=== PATIENT | female | born 1980 | race Caucasian/White ===

== ENCOUNTER 2017-01-16 17:30 | Emergency (ER) | payer MEDICARE, MEDICAID ==
[~2017-01-16] VITALS: Ht 172.7 cm; Wt 96.8 kg
[~2017-01-16 17:30] MED LIST: AMPH20TA5 PO; BUPR1FIL3 SL; BUPR1FIL5 SL; DIAZ5TAB PO; FLUO20CA25 PO
[2017-01-16 17:39] VITALS: BP 128/85; PULSE 108; RESP 14; O2SAT 91
[2017-01-16 18:12] LABS: BASOPHILS % (AUTO) 0.2 % (0-3); EOSINOPHILS % (AUTO) 1.9 % (0-5); MONOCYTES % (AUTO) 8.4 % (4-12); Mean Corpuscular Hemoglobin 27.2 pg (27.0-35.0); Mean Corpuscular Volume 81.6 fL (81-100); NEUTROPHILS % (AUTO) 70.3 % (40-74); Platelet Count 149 bil/L (150-400)
[2017-01-16 18:34] LABS: TROPONIN T < 0.010 ug/L (0.0-0.011)
--- NOTE | 2017-01-16 18:34 | DRSVH ---
PROCEDURE: X-RAY CHEST ONE VIEW, PORTABLE ([id number]) INDICATIONS: chest pain TECHNIQUE: One view of the chest was acquired. COMPARISON: None. FINDINGS: Surgical changes and devices: None. Lungs and pleura: No pleural effusions or pneumothorax. Right basilar platelike atelectasis or scarr ing. Otherwise the lungs are clear. Mediastinum: Mediastinal contours appear normal. Heart size is normal. Bones and chest wall: No suspicious bony lesions. Overlying soft tissues appear unremarkable. IMPRESSION: Right basilar platelike atelectasis or scarring. Otherwise, no radiographic evidence of c hest pathology. Dictated by: Michael Veronica M.D. on 01/16/2017 at 18:32 Approved by: Michael Veronica M.D. on 01/16/2017 at 18:33
[2017-01-16 19:40] VITALS: BP 119/54; PULSE 115; RESP 21; O2SAT 95
--- NOTE | 2017-01-16 19:40 | ED.REPORT ---
HPI-Abd Pain F Under 40 Date of Service Jan 16, 2017 ED Provider: Leroy Wallace DO Pt is a 36 year old female with a history of chronic abdominal pain who presents to the ED complaining of intermittent LLQ abdominal pain onset 4 days ago. She c/o associated SOB, urinary urgency, increased urinary frequency, nausea, restlessness, clammy skin, and tachycardia. She denies vomiting, diarrhea, dysuria, dehydration, and back pain. Pt presented to Urgent care with her symptoms and she reports that they determined that she was "clammy" and tachycardic at 125. Pt rates her pain 5/10 at its worst, and reports that she cannot feel her pain currently due to her position. Per pt, her pain is exacerbated by movement, laying on her side. Patient is somewhat of a poor historian. Pt denies a history of kidney stones, recent surgeries, current . Pt also denies missing any of her Suboxone doses. The pt was not sure when her last menstruation was, but her mom reports that is was 2 weeks ago. Per pt, she had a colonoscopy 4 years ago that was negative, with no specific evidence of diverticulosis. Nursing Notes Stated Complaint: STOMACH PAIN,LOW PULSE,TACHYCARDIA Chief Complaint: Female Abdominal Pain Nursing Notes Reviewed: Yes Allergies: Coded Allergies: No Known Allergies (Verified Allergy, Unknown, 03/30/14) Scheduled Amphet Asp/Amphet/D-Amphet (Adderall) 20 Mg Tablet 20 MG PO BID Buprenorphine HCl/Naloxone HCl (Suboxone 4 mg-1 mg Sl Film) 1 Each Film 1 EACH SL DAILY Buprenorphine HCl/Naloxone HCl (Suboxone 8 mg-2 mg Sl Film) 1 Each Film 1 EACH SL DAILY Diazepam (Valium) 5 Mg Tablet 6 MG PO TID Fluoxetine (Fluoxetine) 20 Mg Capsule 80 MG PO DAILY General Time Seen by MD: 18:17 Chief Complaint Abdominal pain Hx Obtained From: Patient Arrived By: Walk-in Sudden in Onset?: No Onset Occurred: 4 days ago Symptom Duration: Since onset Location: : LLQ Quality: Painful Radiation: : Does not radiate Severity: Current: Moderate Severity: Maximum: Moderate Recent Healthcare: Recent doctor visit Similar Sx Previous: Yes Past Medical History Past Medical History Opiate abuse ADHD Chronic migraine Chronic abdominal pain Reports: GERD Reports: Depression Past Surgical History colonoscopy EGD with biopsy and brushings Smoking History Current Some Day Smoker Social History Alcohol Use: Denies alcohol use Drug Use: Other (Prescription opiates) Other Social History: Good social support Ambulatory Status Independent Review of Systems + restlessness + clammy skin Respiratory: Reports: Shortness of breath GI: Reports: Abdominal pain, Nausea, Denies: Diarrhea, Vomiting Female: Reports: Urinary frequency, Urinary urgency, Denies: Dysuria Musculoskeletal: Denies: Back pain Complete sys rev & neg: except as marked. Physical Exam Initial Vital Signs Vital Signs (First) Date Time Temp Pulse Resp B/P Pulse Ox O2 Delivery O2 Flow Rate FiO2 01/16/17 17:39 36.8 108 14 128/85 91 Room Air Initial VS: Reviewed Head / Eyes: Atraumatic, Normocephalic Neck: Supple, Full range of motion Neurologic: Alert, Oriented, Nonfocal Psychiatric: Mood/affect normal General/Constitutional: Awake, Alert Respiratory / Chest: Atraumatic, Breath sounds NL, Breath sounds = bilat No increased work of breathing Cardiovascular: Regular rhythm, Heart sounds NL, No murmurs Heart Rate / Rhythm: Positive: Tachycardia Abdomen: Atraumatic, Soft, Non-tender Back: Atraumatic, Full range of motion, No CVA tenderness Skin: Warm Clammy Lower Extremity / Pelvis / MS: Atraumatic, Full range of motion, No swelling ( bilaterally) Interpretation & Diagnostics Lab Results Interpretation Result Diagram: 01/16/17 1800 01/16/17 1800 Test 01/16/17 17:57 01/16/17 17:58 01/16/17 18:00 01/16/17 19:41 Hold Purple Top Tube Received (Received) Hold Blue Top Tube Received (Received) Hold Red Top Tube Received (Received) Hold Milo Top Tube Received (Received) Hold Gaston Top Tube Received (Received) White Blood Count 12.3th/mm3 (3.8-10.1) Red Blood Count 4.63mil/mm3 (3.90-5.20) Hemoglobin 12.6g/dL (12.0-15.6) Hematocrit 37.8% (35.0-46.0) Mean Corpuscular Volume 81.6fL (81-100) Mean Corpuscular Hemoglobin 27.2pg (27.0-35.0) Mean Corpuscular Hemoglobin Concent 33.3% (32.0-37.0) Red Cell Distribution Width 13.0% (12.3-15.4) Platelet Count 149bil/L (150-400) Neutrophils (%) (Auto) 70.3% (40-74) Lymphocytes (%) (Auto) 19.0% (14-46) Monocytes (%) (Auto) 8.4% (4-12) Eosinophils (%) (Auto) 1.9% (0-5) Basophils (%) (Auto) 0.2% (0-3) Sodium Level 135mEq/L (134-144) Potassium Level 4.1mEq/L (3.5-5.2) Chloride Level 99mEq/L (97-108) Carbon Dioxide Level 22mmol/L (18-29) Blood Urea Nitrogen 22mg/dL (6-20) Creatinine 0.74mg/dL (0.57-1.00) Estimat Glomerular Filtration Rate 126mL/min (>59) Glucose Level 113mg/dL (60-99) Calcium Level 8.8mg/dL (8.5-10.1) Magnesium Level 2.0mg/dL (1.6-2.6) Total Bilirubin 0.2mg/dL (0.0-1.2) Aspartate Amino Transf (AST/SGOT) 17U/L (0-50) Alanine Aminotransferase (ALT/SGPT) 17U/L (0-32) Alkaline Phosphatase 58U/L (25-150) Troponin T < 0.010ug/L (0.0-0.011) Total Protein 7.2g/dL (6.4-8.4) Albumin 3.9g/dL (3.4-5.0) Lipase 17U/L (13-60) Hold Urine Received (Received) Test 01/16/17 19:51 Urine Color Dark yellow (YELLOW) Urine Appearance Clear (CLEAR,HAZY) Urine pH 5.5 (5.0-8.0) Urine Specific [place] 1.005 (1.003-1.035) Urine Protein Negativemg/dL (NEG,TRACE) Urine Glucose (UA) Negativemg/dL (NEGATIVE) Urine Ketones Negativemg/dL (NEGATIVE) Urine Occult Blood Negative (NEGATIVE) Urine Nitrite Positive (NEGATIVE) Urine Bilirubin Negative (NEGATIVE) Urine Urobilinogen Normalmg/dL (NORMAL) Urine Leukocyte Esterase Negative (NEGATIVE) Urine RBC 0-2/hpf (0-2) Urine WBC 0-5/hpf (0-5) Urine Epithelial Cells Few/hpf (NONE-MOD) Urine Crystals None seen (NONE SEEN) Urine Bacteria Few/hpf (NONE-FEW) Urine Hyaline Casts None/lpf (NONE) Urine Granular Casts None seen (NONE SEEN) Urine Waxy Casts None seen (NONE SEEN) Urine Red Blood Cell Casts None seen (NONE SEEN) Urine White Blood Cell Casts None seen (NONE SEEN) Urine Mucus None seen (None Seen) Urine Trichomonas None seen (NONE SEEN) Urine Yeast None (NONE SEEN) Urinalysis Comment None Urine Culture Reflexed Indicated ECG Interpretation ECG Interpretation: Sinus tachycardia with a rate of 110 Time: 18:06 Interpreted by: ED physician X-Ray Chest Interpretation Chest Xray Interpretation: IMPRESSION: Right basilar platelike atelectasis or scarring. Otherwise, no radiographic evidence of chest pathology. Dictated by: Michael Veronica M.D. on 01/16/2017 at 18:32 View: Portable, 1 view Interpretation / Wet Read by: Interpret - Radiologist CT Chest Interpretation IMPRESSION: 1. No acute pulmonary emboli. 2. Right basilar platelike atelectasis or scarring. Dictated by: Michael Veronica M.D. on 01/16/2017 at 20:43 Study type: Chest CT w contrast Interpretation / Wet Read by: Interpret - Radiologist Re-Eval/Medical Decision Med Decision/Clinical Course 36-year-old female who is somewhat of a poor historian presents with tachycardia (a heart rate about 110), warm clammy skin, and some vague complaints of intermittent abdominal pain and urinary frequency. Her UA is not convincing for an obvious UTI, urine culture is pending. Her heart rate decreased down into the upper 90s after 1 L of normal saline bolus. Her blood counts reveal a slight leukocytosis, and along with her tachycardia she did meet criteria for sepsis. Chest x-ray did not reveal signs of pneumonia. Her O2 hovered between 91 and 95 on room air. Given these findings by most concerning thing to rule out would be a pulmonary embolus and given her high wells score d-dimer would not likely be accurate. CT PE of the chest was negative. I considered performing an abdominal CT, however she had no abdominal tenderness objectively with serial abdominal examinations during her ER visit, and wanted to avoid excess radiation. I discussed with her that should her pain return or worsen she should come back for reevaluation. I also advised her to see her primary care provider within the next several days for a recheck. I considered other causes for her symptoms such as narcotic withdrawal , however she notes that she has not missed any doses of her Suboxone. Source of Hx: Old records Re-Evaluation/Progress : Time of Eval: 21:28 Patient Status: Condition improved Re-Evaluation/Progress Note: Pt rechecked. Informed pt of results and plan for discharge. Pt understands and agrees with plan for discharge. F/U instructions and RTER warnings given. All questions addressed. Counseled Regarding: Diagnosis, Lab results, Need for follow-up, When/why to return to ED Discharge & Departure Primary Impression: Tachycardia Additional Impressions: Leukocytosis Leukocytosis type: unspecified Qualified Code: D72.829 - Elevated white blood cell count, unspecified Hypoxia Ruled Out: Pulmonary embolism Disposition: Home Discharge Condition All VS Reviewed: Yes Condition: Stable Additional Instructions: Thank you for entrusting us with your care. No dangerous findings were identified here in the ER. I do not see definite evidence for infection in your urine and no signs of pneumonia are seen. Your abdomen is nontender here so I do not suspect an abdominal problem. No pulmonary embolus was found by CT scan. Follow up with your primary care provider within the next 2-3 days. Return to the ER for new or worsening symptoms. Referrals: Regina Macario DO (PCP) Milka Attestation Portions of this note were transcribed by Deepali Johnston. I, Dr. Wallace personally performed the history, physical exam and medical decision-making; I reviewed and confirmed the accuracy of the information in the transcribed note. Signed by: Milka Wheeler, 01/16/17. copies to: Regina Macario Gary R DO Jan 16, 2017 19:40 Deepali Rm Jan 16, 2017 19:46
[2017-01-16 20:14] LABS: APPEARANCE,URINE CLEAR (CLEAR,HAZY); COLOR,URINE DARK YELLOW (YELLOW); OCCULT BLOOD,URINE NEGATIVE (NEGATIVE); PH,URINE 5.5 (5.0-8.0); UROBILINOGEN,URINE NORMAL (NORMAL)
--- NOTE | 2017-01-16 20:49 | DRSVH ---
PROCEDURE: CT ANGIO CHEST PULMONARY EMBOLISM ([id number]) INDICATIONS: hypoxia, tachycardia TECHNIQUE: After the administration of intravenous contrast, 2 mm thick sections acquired from the pulmonary api oksana to the posterior costophrenic angles. 3-dimensional maximum intensity projection (MIP) coronal a nd sagittal reformats were then acquired through the thorax. For radiation dose reduction, the follo wing was used: automated exposure control, adjustment of mA and/or kV according to patient size. COMPARISON: None. FINDINGS: Image quality: Excellent. Pulmonary arteries: Pulmonary arteries are normal in size, and demonstrate no intraluminal filling d efects to suggest central pulmonary embolism. Lungs and pleura: Right basilar platelike atelectasis. No pleural effusions or pneumothorax. Centra l and peripheral airways are patent. Mediastinum: Heart size is normal, without pericardial effusion. No mediastinal or hilar adenopathy . Thoracic aorta is normal in caliber and enhancement. Esophagus is normal in caliber, without hiat al hernia. Bones and chest wall: No suspicious bony lesions. Ribs and thoracic spine appear intact throughout. Thyroid gland is partially visualized. No axillary or supraclavicular adenopathy. Abdomen: Visualized upper abdominal solid organs appear normal in the early arterial phase of enhanc ement. IMPRESSION: 1. No acute pulmonary emboli. 2. Right basilar platelike atelectasis or scarring. Dictated by: Michael Veronica M.D. on 01/16/2017 at 20:43 Approved by: Michael Veronica M.D. on 01/16/2017 at 20:48
[2017-01-16 20:50] VITALS: BP 126/59; PULSE 106; RESP 19; O2SAT 97
[2017-01-16 21:56] VITALS: BP 116/57; PULSE 88; RESP 20; O2SAT 98
== END 2017-01-16 22:00 | disposition home or self-care (01) ==
LOC: SED 17:30
DX: R00.0 Tachycardia, unspecified (principal); D72.829 Elevated white blood cell count, unspecified; R09.02 Hypoxemia; K21.9 Gastro-esophageal reflux disease without esophagitis; F32.9 Major depressive disorder, single episode, unspecified; F17.200 Nicotine dependence, unspecified, uncomplicated
CPT/HCPCS: 36415; 71010; 71275; 80053; 81000; 81025; 83690; 83735; 84484; 85025; 87086; 87088; 93005; 99285; Q9967

== ENCOUNTER 2017-01-18 05:20 | Emergency (ER) | payer MEDICARE, MEDICAID ==
[~2017-01-18] VITALS: Ht 172.7 cm; Wt 95.5 kg
[2017-01-18 05:37] VITALS: BP 132/86; PULSE 105; RESP 14; O2SAT 97
--- NOTE | 2017-01-18 06:15 | ED.REPORT ---
HPI-Psychiatric Illness Date of Service Jan 18, 2017 ED Provider: Shai Gimenez MD History of Present Illness: OCC Pt is a 36 year old with a history of insomnia, depression, anxiety, ADHD, and opiate abuse who presents to the ED complaining of difficulty organizing her thoughts onset 4 days ago. She c/o associated malaise, dry mouth, diaphoresis, clammy skin, decreased appetite, insomnia, recent abdominal pain, decreased urinary urgency, dysuria, and anxiety. She denies suicidal ideation, homicidal ideation, auditory hallucinations, fever, vomiting, diarrhea, burning with urination, change in urinary volume, and any other symptoms. Her mother reports lethargy. Pt denies drug and alcohol use. She reports that she recently had a polysomnogram conducted, but she has not heard back regarding the results. Per mother, the pt took approximately 350 mg of hydroxyzine at one time 2 days ago and the mother confiscated it. The pt states that she knows where additional hydroxyzine is in the house, but she denies taking it. She reports that she recently was prescribed Wellbutrin for depression. Her step-father reports that the pt stated recently "I am afraid to lay down because I'm afraid I am going to ." Her mother reports that the pt's brother was diagnosed with Bipolar and killed himself in 2010, resulting in the pt's increased symptoms since. Per step-father, the pt has been in her room recently with unusual behaviors such as obsessively reorganizing and washing clothes. She states "I couldn't spatially configure the rooms the way I'd configured them to. I can't make sense of the things I see." Pt reports that she has experienced similar symptoms previously, but she has not been hospitalized for them previously. Pt presented to the ED on 01/16/17 and was diagnosed with tachycardia, leukocytosis, and hypoxia. Nursing Notes Stated Complaint: MENTAL HEALTH EVAL Chief Complaint: Psychiatric Complaint Nursing Notes Reviewed: Yes (Health Elements not reconciled) Allergies: Coded Allergies: No Known Allergies (Verified Allergy, Unknown, 03/30/14) Scheduled Amphet Asp/Amphet/D-Amphet (Adderall) 20 Mg Tablet 20 MG PO BID Buprenorphine HCl/Naloxone HCl (Suboxone 4 mg-1 mg Sl Film) 1 Each Film 1 EACH SL DAILY Buprenorphine HCl/Naloxone HCl (Suboxone 8 mg-2 mg Sl Film) 1 Each Film 1 EACH SL DAILY Diazepam (Valium) 5 Mg Tablet 6 MG PO TID Fluoxetine (Fluoxetine) 20 Mg Capsule 80 MG PO DAILY General Time Seen by MD: 06:05 Chief Complaint Other (Difficulty organizing thoughts) Hx Obtained From: Patient Arrived By: Walk-in Onset Occurred: 4 days ago Symptom Duration: Since onset Severity: Current: No pain currently Severity: Maximum: No pain Recent Healthcare: Recent doctor visit Similar Sx Previous: Yes Risk-Psychiatric Illness Suicide Risk Stratification RF Statements: Risk factors reviewed (not predictive) Past Medical History Past Medical History h/o Opiate abuse ADHD Chronic migraine Chronic abdominal pain Insomnia Anxiety Reports: GERD Reports: Depression Past Surgical History colonoscopy EGD with biopsy and brushings Family History Bipolar Smoking History Current Some Day Smoker Social History Alcohol Use: Denies alcohol use Drug Use: Other (opiates) Other Social History: Good social support Ambulatory Status Independent Review of Systems + clammy skin + decreased appetite + dry mouth Denies burning with urination Constitutional: Reports: Lethargy, Malaise, Denies: Fever GI: Reports: Abdominal pain (not present today), Denies: Diarrhea, Vomiting Skin: Reports Diaphoresis Psychiatric: Reports: Anxiety, Insomnia, Denies: Hallucinations, auditory, Homicidal ideation, Suicidal ideation Complete sys rev & neg: except as marked. Female: Reports: Dysuria, Urinary urgency (Decreased) Physical Exam Initial Vital Signs Vital Signs (First) Date Time Temp Pulse Resp B/P Pulse Ox O2 Delivery O2 Flow Rate FiO2 01/18/17 05:37 36.6 105 14 132/86 97 Room Air Initial VS: Reviewed, Vital signs abnormal (HR 105) Neck: Supple, Full range of motion Respiratory: Breath sounds normal, Clear to auscultation, No respiratory distress Cardiovascular: Regular rate & rhythm, Heart sounds normal, Intact distal pulses Extremities: Vascular intact, Neuro intact General/Constitutional: Awake, Alert Neurologic: Oriented X3, Speech NL Abnormal Mood/Affect: Positive: Anxious Abnormal Thinking / Perception: Positive: Confused (mild), Insight abnormal, Judgment abnormal, Loose associations, Negative: Hallucinations, auditory, Hallucinations, visual, Homicidal, no plan, Homicidal, with plan, Suicidal, no plan, Suicidal, with plan PSYCHIATRIC: Slightly disorganized. Mildly confused. No actively suicidal or homicidal. Limited insight. Poor judgement. Speech is slightly pressured, the patient has a very difficult time focusing. Head / Eyes: Atraumatic, Normocephalic Pupils are normal. ENT: Atraumatic, Airway patent Oropharynx is dry. Cardiovascular: Regular rhythm, Heart sounds NL Low grade tachycardia. Abdomen: Atraumatic, Soft, Non-tender Obese Skin: Warm, Intact Skin is slightly dry Interpretation & Diagnostics Lab Results Interpretation Result Diagram: 01/18/17 0728 01/18/17 0728 Test 01/18/17 06:05 01/18/17 07:28 Hold Urine Received (Received) White Blood Count 7.8th/mm3 (3.8-10.1) Red Blood Count 4.34mil/mm3 (3.90-5.20) Hemoglobin 11.8g/dL (12.0-15.6) Hematocrit 35.2% (35.0-46.0) Mean Corpuscular Volume 81.1fL (81-100) Mean Corpuscular Hemoglobin 27.2pg (27.0-35.0) Mean Corpuscular Hemoglobin Concent 33.5% (32.0-37.0) Red Cell Distribution Width 12.8% (12.3-15.4) Platelet Count 182bil/L (150-400) Neutrophils (%) (Auto) 58.3% (40-74) Lymphocytes (%) (Auto) 29.0% (14-46) Monocytes (%) (Auto) 9.0% (4-12) Eosinophils (%) (Auto) 3.5% (0-5) Basophils (%) (Auto) 0.1% (0-3) Sodium Level 138mEq/L (134-144) Potassium Level 3.7mEq/L (3.5-5.2) Chloride Level 99mEq/L (97-108) Carbon Dioxide Level 25mmol/L (18-29) Blood Urea Nitrogen 23mg/dL (6-20) Creatinine 0.64mg/dL (0.57-1.00) Estimat Glomerular Filtration Rate 150mL/min (>59) Glucose Level 109mg/dL (60-99) Calcium Level 9.2mg/dL (8.5-10.1) Total Bilirubin 0.3mg/dL (0.0-1.2) Aspartate Amino Transf (AST/SGOT) 23U/L (0-50) Alanine Aminotransferase (ALT/SGPT) 18U/L (0-32) Alkaline Phosphatase 59U/L (25-150) Total Protein 7.1g/dL (6.4-8.4) Albumin 3.9g/dL (3.4-5.0) Thyroid Stimulating Hormone (TSH) 3.820uIU/mL (0.450-4.500) Salicylates Level 3.0ug/mL (30-250) Acetaminophen Level 15.0ug/mL Rx (10-25) Lab Results Interpretation: CBC normal CMP normal Tylenol negative Salicylates 3 Utox positive benzos, positive TCA, positive amphetamines (patient's medication list indicates possible medication exposures to Adderall, Valium - although patient did not reliably indicate these when queried medications) ETOH 0 negative ECG Interpretation ECG Interpretation: Sinus rhythm with a rate of 98 Time: 07:32 Interpreted by: ED physician Re-Eval/Medical Decision Med Decision/Clinical Course This is a 36-year-old female brought by family voluntarily requesting assistance. Plans of increasingly severe insomnia over the past 4 days of poor sleep, the family describes racing thoughts, and his extensive history of bipolar-factor brother had bipolar in the killed himself a few years ago. The patient's been helping take care of the parents, but they reports they have noticed it is quite excessive-she takes apart her wounds at night and tries to be organized things, she overloads traveling sales executive's, she gets so focused on loading glasses that she has broken several glasses. Additionally noticed difficulty with her thought focus, described pressured speech and some tangential and disorganized thinking. The patient denies suicidal or homicidal ideation, she denies auditory or visual hallucination. Was seen in the emergency department several days ago for rapid heart rate questionable abdominal pain with a negative workup. It turns out the patient is taking hydroxyzine to help her sleep, and she intentionally took quite a bit extra days ago-and alleges that she has not taken any since. The mother says they took her vitals of hydroxyzine away, but it turns out she had additional pills-she insists that she is not taking any. She described a little bit of dry mouth, slightly decreased urination-and this raised the possibility initial anticholinergic toxicity. However I talked with the infantry officer at poison control can her [facility], and given the patient's mild findings at present emergency department, and given that the last ingestion of hydroxyzine was 72+ hours ago, the likelihood of ongoing anticholinergic capacity seems low as the medication should have metabolized. Recommend looking alternate sources. Of note had challenges because of the patient's O disorganized sorting out her medications-she Stating there in the computer, the medication list in the [facility] was clearly inaccurate, and even the listed urgent care a few days ago she felt was more accurate was incomplete. The patient reports being on Suboxone, Adderall, Wellbutrin which was recently increased to weeks ago, Prozac , triptan for migraines and was using the hydroxyzine until a few days ago. She denies substance abuse.\\ On evaluation she is again as a low-grade tachycardia, she is very restless list , as pressured speech, increased psychomotor activity, but does not have dilated pupils. She is not have hot red skin. And she has no urinary retention on bladder scan. She does not have hard findings of anticholinergic toxicity. Lab work was normal. Urine tox positive for benzos, which I believe she received in the emergency department/surgeon care a few days ago-she adamantly states that she has not had any benzos for several years. Amphetamines are positive, but the patient is on Adderall. Alcohol 0. is negative. The patient did receive a dose of Ativan while waiting for the LINUX ADMINISTRATOR the patient was very antsy and restless. She demonstrates very poor insight. The parents are here to give high description of the lack of functionality, and a high level concern. I remain concerned for an underlying psychiatric illness, differential still does include medication induced, although both parents and patient deny. Vision seemed by the LINUX ADMINISTRATOR and a voluntary admission to [facility] has been arranged. The patient wishes to go home and shower and then go down to [facility] , and they have agreed to this but indicates there is a change might lose her bed cannot hold it without it being a spelled hospital transfer, but that she loses her bed she could call back daily for bed availability and that she still go directly. The patient and family are comfortable with this. So the patient is being discharged referral information's been provided by the LINUX ADMINISTRATOR. The patient's discharged in stable condition Source of Hx: Old records Re-Evaluation/Progress #1: Time of Eval: 11:27 Re-Evaluation/Progress Note: Pt rechecked. Updated pt and family on progress. All questions addressed. Re-Evaluation/Progress #2: Time of Eval: 13:01 Re-Evaluation/Progress Note: Pt consulted with [facility]. The pt says she wants to go to [facility], but she wants to go home first for a shower and to get her belongings. Re-Evaluation/Progress #3: Time of Eval: 13:02 Re-Evaluation/Progress Note: Pt rechecked. Informed pt of plan for discharge. Pt understands and agrees with plan for discharge. F/U instructions and RTER warnings given. All questions addressed. Consultation : Call Returned at: 07:19 Associate Brand Manager: Agrees with eval, Agrees with plan Note: Consult with Toxicology. Discussed pt's case. Counseled Regarding: Diagnosis, Lab results, Need for follow-up, When/why to return to ED Discharge & Departure Impression: Primary Impression: Mood disorder Additional Impression: Insomnia Insomnia type: unspecified Qualified Code: G47.00 - Insomnia, unspecified )( Condition at Discharge: No danger to self Disposition: Home Discharge Condition All VS Reviewed: Yes Condition: Stable Additional Instructions: 1. We have arranged for you to be accepted to [facility] for further mental health evaluation and management, as we were concerned about the possibility of bipolar illness with manic component that is interfering with your sleep and thinking. 2. [facility] has indicated it is OK for you to go home and shower and then go right down, although there is a chance you may lose the currently available bed by doing so. You will need to call them immediately with the number that you were given by the LINUX ADMINISTRATOR before heading down to confirm the bed remains available.. (IF you lose the bed, call daily for bed availability) 3. Return if new or worsening symptoms. 4. Your blood tests in the ED were normal. Referrals: Regina Macario DO (PCP) Scribe Attestation Portions of this note were transcribed by Deepali Johnston. I, Dr. Gimenez personally performed the history, physical exam and medical decision-making; I reviewed and confirmed the accuracy of the information in the transcribed note. Signed by: Milka Wheeler, 01/18/17. copies to: Regina Macario Matthew F MD Jan 18, 2017 06:14 Deepali Rm Jan 18, 2017 06:29
[2017-01-18 07:41] LABS: BASOPHILS % (AUTO) 0.1 % (0-3); EOSINOPHILS % (AUTO) 3.5 % (0-5); Mean Corpuscular Hemoglobin 27.2 pg (27.0-35.0); Mean Corpuscular Volume 81.1 fL (81-100); NEUTROPHILS % (AUTO) 58.3 % (40-74); Platelet Count 182 bil/L (150-400)
[2017-01-18] MEDS ORDERED: LORazepam 2 mg Tablet PO ONE (09:50)
[2017-01-18 12:57] VITALS: BP 126/85; PULSE 108; RESP 16; O2SAT 95
== END 2017-01-18 13:16 | disposition home or self-care (01) ==
LOC: SED 05:20
DX: F39 Unspecified mood [affective] disorder (principal); G47.00 Insomnia, unspecified; F32.9 Major depressive disorder, single episode, unspecified; F41.9 Anxiety disorder, unspecified; F90.9 Attention-deficit hyperactivity disorder, unspecified type; R53.81 Other malaise; R68.2 Dry mouth, unspecified; R61 Generalized hyperhidrosis; R10.9 Unspecified abdominal pain; R30.0 Dysuria; F17.200 Nicotine dependence, unspecified, uncomplicated; K21.9 Gastro-esophageal reflux disease without esophagitis
CPT/HCPCS: 36415; 51798; 80053; 81002; 81025; 82075; 84443; 85025; 90791; 93005; 99284; G0480